=== PATIENT | male | born 1965 | race Caucasian/White ===

== ENCOUNTER 2018-02-07 02:48 | Observation (INO) | payer SELFPAY ==
[2018-02-07] MEDS ORDERED: Sodium Chloride 0.9% 2.5 ML Syringe FLUSH PRN ×2 (02:59)
[2018-02-07] MEDS ORDERED: Alum Hydrox/Mag Hydrox/Simeth 15 ML, Metoclopramide 5 MG, Lidocaine 2% 5 ML PO ONE ×3 (02:59)
[2018-02-07] MEDS ORDERED: Sodium Chloride 0.9% 1,000 ML IV ONE (02:59)
[2018-02-07] MEDS ORDERED: Famotidine 20 MG/2 ML SDV IVPUSH ONE (02:59)
[2018-02-07] MEDS ORDERED: Sodium Chloride 0.9% 10 ML Syringe FLUSH PRN (02:59)
--- NOTE | 2018-02-07 03:01 | EDM.PDOC ---
ED HPI GENERAL MEDICAL PROBLEM - General Chief Complaint: Chest Pain Stated Complaint: CHEST PAINS Time Seen by Provider: 02/07/18 03:01 Source of Information: Reports: Patient History Limitations: Reports: No Limitations - History of Present Illness INITIAL COMMENTS - FREE TEXT/NARRATIVE: HISTORY AND PHYSICAL: History of present illness: 52-year-old male presenting to the emergency department by ambulance with chief complaint of chest pain/tightness/burning and dizziness 2 hours intermittent with past medical history of hypertension. Patient states that he was working out in the sun all day and does admit to drinking 3 cups of coffee and very little water. Around 8:00 pm he began to feel chest tightness as well as burning sensation in the left substernal area without radiation to the left arm or jaw. States that at that time laying down made the pain worse. Pain was intermittent and lasting for 1-2 minutes at a time. The pain seemed to alleviate on its own but happen multiple times. At approximately midnight he began to have worsening chest tightness and burning. He had associated diaphoresis as well as shortness of breath and felt dizzy. He did not pass out. He proceeded to start driving himself into the hospital but secondary to increasing pain dizziness and feeling like he was going to pass out called EMS who met him and continued transport here. He states that he has had nausea with dry heaves. He does have a history of heartburn. EMS gave him oxygen as well as 324 mg chewable aspirin. States that he felt somewhat beter after this. Patient is originally from [place] and sees a Dr. Mcmahan there. He has been in [place] for 1 week. Patient states that he quit smoking in 1995 but was not an every day smoker. He also does not drink alcohol since 1995. On arrival to the ED patient was asymptomatic. Patient has a history of hypertension but no other cardiopulmonary disease. Patient denies any allergies. Review of systems: As per history of present illness and below otherwise all systems reviewed and negative. Past medical history: As per history of present illness and as reviewed below otherwise noncontributory. Surgical history: As per history of present illness and as reviewed below otherwise noncontributory. Social history: No reported history of drug or alcohol abuse. Family history: As per history of present illness and as reviewed below otherwise noncontributory. Physical exam: HEENT: Atraumatic, normocephalic, pupils reactive, negative for conjunctival pallor or scleral icterus, mucous membranes moist, throat clear, neck supple, nontender, trachea midline. Lungs: Clear to auscultation, breath sounds equal bilaterally, chest nontender. Heart: S1S2, regular, negative for clicks, rubs, or JVD. Abdomen: Soft, nondistended, nontender. Negative for masses or hepatosplenomegaly. Negative for costovertebral tenderness. Pelvis: Stable nontender. Genitourinary: Deferred. Rectal: Deferred. Extremities: Atraumatic, negative for cords or calf pain. Neurovascular unremarkable. Neuro: Awake, alert, oriented. Cranial nerves II through XII unremarkable. Cerebellum unremarkable. Motor and sensory unremarkable throughout. Exam nonfocal. Diagnostics: CBC, CMP, troponin, INR, chest x-ray, EKG Therapeutics: Famotidine 20 mg IV 1, 1 L normal saline Impression: Atypical chest pain GERD Dehydration Plan: Vital signs remained stable and normal during his time in the ER. He had no further episodes of chest pain. He was given famotidine as well as 1 L normal saline. Initial EKG showed no significant ST changes suggestive of acute ischemic event. Initial troponin was negative. CBC, CMP, INR, chest x-ray were all unremarkable. Secondary to patient's age as well as history of hypertension hospitalist Dr. Arnold was called for observation for atypical chest pain. He accepted patient for admission. Patient will be admitted to obs telemetry for atypical chest pain. 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: Aspirin, IV/IO - Related Data Allergies Allergy/AdvReac Type Severity Reaction Status Date / Time No Known Allergies Allergy Verified 02/07/18 04:03 Home Meds: Home Meds Lisinopril 20 mg PO DAILY 02/07/18 [History] Past Medical History Cardiovascular History: Reports: Hypertension Social & Family History - Family History Family Medical History: Noncontributory - Tobacco Use Smoking Status *Q: Former Smoker Used Tobacco, but Quit: Yes Month/Year Tobacco Last Used: 96 - Caffeine Use Caffeine Use: Reports: Coffee ED ROS GENERAL - Review of Systems Review Of Systems: ROS reveals no pertinent complaints other than HPI. ED EXAM, GENERAL - Physical Exam Exam: See Below Course - Vital Signs Last Recorded V/S: Last Vital Signs Temp 98.1 F 02/07/18 02:57 Pulse 76 02/07/18 02:57 Resp 18 06/04/18 02:57 BP 134/83 02/07/18 02:57 Pulse Ox 99 02/07/18 02:57 - Orders/Labs/Meds Orders: Active Orders 24 hr Category Date Time Status Cardiac Monitoring [RC] . DIRECTED Care 02/07/18 02:59 Active EKG Documentation Completion [RC] STAT Care 02/07/18 02:59 Active Oxygen Therapy [RC] ASDIRECTED Care 02/07/18 02:59 Active Pulse Oximetry [RC] ASDIRECTED Care 02/07/18 02:59 Active Chest 1V Frontal [CR] Stat Exams 02/07/18 02:59 Taken UA W/MICROSCOPIC [URIN] Stat Lab 02/07/18 03:00 Ordered Sodium Chloride 0.9% [Saline Flush] Med 02/07/18 02:59 Active 10 ml FLUSH ASDIRECTED PRN Sodium Chloride 0.9% [Saline Flush] Med 02/07/18 02:59 Active 2.5 ml FLUSH ASDIRECTED PRN Sodium Chloride 0.9% [Saline Flush] Med 02/07/18 02:59 Active 2.5 ml FLUSH ASDIRECTED PRN Saline Lock Insert [OM.PC] Stat Oth 02/07/18 02:59 Ordered Medication Orders Sodium Chloride (Saline Flush) 2.5 ml FLUSH ASDIRECTED PRN PRN Reason: Keep Vein Open Last Admin: 02/07/18 03:07 Dose: 2.5 ml Sodium Chloride (Saline Flush) 10 ml FLUSH ASDIRECTED PRN PRN Reason: Keep Vein Open Last Admin: 02/07/18 03:06 Dose: 10 ml Sodium Chloride (Saline Flush) 2.5 ml FLUSH ASDIRECTED PRN PRN Reason: Keep Vein Open Last Admin: 02/07/18 03:07 Dose: 2.5 ml Labs: Laboratory Tests 02/07/18 02/07/18 02/07/18 Range/Units 03:00 03:00 03:00 WBC 9.32 (4.0-11.0) K/uL RBC 5.01 (4.50-5.90) M/uL Hgb 15.5 (13.0-17.0) g/dL Hct 43.0 (38.0-50.0) % MCV 85.8 (80.0-98.0) fL MCH 30.9 (27.0-32.0) pg MCHC 36.0 (31.0-37.0) g/dL RDW Std Deviation 39.5 (28.0-62.0) fl RDW Coeff of Opal 13 (11.0-15.0) % Plt Count 207 (150-400) K/uL MPV 10.00 (7.40-12.00) fL Neut % (Auto) 82.5 H (48.0-80.0) % Lymph % (Auto) 14.4 L (16.0-40.0) % [place] % (Auto) 2.5 (0.0-15.0) % Eos % (Auto) 0.4 (0.0-7.0) % Baso % (Auto) 0.2 (0.0-1.5) % Neut # (Auto) 7.7 H (1.4-5.7) K/uL Lymph # (Auto) 1.3 (0.6-2.4) K/uL [place] # (Auto) 0.2 (0.0-0.8) K/uL Eos # (Auto) 0.0 (0.0-0.7) K/uL Baso # (Auto) 0.0 (0.0-0.1) K/uL Nucleated RBC % 0.0 /100WBC Nucleated RBCs # 0 K/uL INR 1.08 Sodium 137 (136-148) mmol/L Potassium 3.0 L (3.5-5.1) mmol/L Chloride 100 (98-107) mmol/L Carbon Dioxide 26.9 (21.0-32.0) mmol/L BUN 20 H (7.0-18.0) mg/dL Creatinine 1.2 (0.8-1.3) mg/dL Est Cr Clr Drug Dosing TNP Estimated GFR (MDRD) > 60.0 ml/min Glucose 115 H (74-106) mg/dL Calcium 8.6 (8.5-10.1) mg/dL Total Bilirubin 0.5 (0.2-1.0) mg/dL AST 18 (15-37) IU/L ALT 27 (14-63) IU/L Alkaline Phosphatase 48 (46-116) U/L Troponin I < 0.050 (0.000-0.056) ng/mL Total Protein 7.0 (6.4-8.2) g/dL Albumin 4.3 (3.4-5.0) g/dL Globulin 2.7 (2.0-3.5) g/dL Albumin/Globulin Ratio 1.6 (1.3-2.8) Urine Color Urine Appearance Urine pH (5.0-8.0) Ur Specific [place] (1.001-1.035) Urine Protein (NEGATIVE) mg/dL Urine Glucose (UA) (NEGATIVE) mg/dL Urine Ketones (NEGATIVE) mg/dL Urine Occult Blood (NEGATIVE) Urine Nitrite (NEGATIVE) Urine Bilirubin (NEGATIVE) Urine Urobilinogen (<2.0) EU/dL Ur Leukocyte Esterase (NEGATIVE) Urine RBC (0-2/HPF) Urine WBC (0-5/HPF) Ur Epithelial Cells (NONE-FEW) Urine Bacteria (NEGATIVE) 02/07/18 Range/Units 03:00 WBC (4.0-11.0) K/uL RBC (4.50-5.90) M/uL Hgb (13.0-17.0) g/dL Hct (38.0-50.0) % MCV (80.0-98.0) fL MCH (27.0-32.0) pg MCHC (31.0-37.0) g/dL RDW Std Deviation (28.0-62.0) fl RDW Coeff of [place]al (11.0-15.0) % Plt Count (150-400) K/uL MPV (7.40-12.00) fL Neut % (Auto) (48.0-80.0) % Lymph % (Auto) (16.0-40.0) % [place] % (Auto) (0.0-15.0) % Eos % (Auto) (0.0-7.0) % Baso % (Auto) (0.0-1.5) % Neut # (Auto) (1.4-5.7) K/uL Lymph # (Auto) (0.6-2.4) K/uL [place] # (Auto) (0.0-0.8) K/uL Eos # (Auto) (0.0-0.7) K/uL Baso # (Auto) (0.0-0.1) K/uL Nucleated RBC % /100WBC Nucleated RBCs # K/uL INR Sodium (136-148) mmol/L Potassium (3.5-5.1) mmol/L Chloride (98-107) mmol/L Carbon Dioxide (21.0-32.0) mmol/L BUN (7.0-18.0) mg/dL Creatinine (0.8-1.3) mg/dL Est Cr Clr Drug Dosing Estimated GFR (MDRD) ml/min Glucose (74-106) mg/dL Calcium (8.5-10.1) mg/dL Total Bilirubin (0.2-1.0) mg/dL AST (15-37) IU/L ALT (14-63) IU/L Alkaline Phosphatase (46-116) U/L Troponin I (0.000-0.056) ng/mL Total Protein (6.4-8.2) g/dL Albumin (3.4-5.0) g/dL Globulin (2.0-3.5) g/dL Albumin/Globulin Ratio (1.3-2.8) Urine Color YELLOW Urine Appearance CLEAR Urine pH 5.5 (5.0-8.0) Ur Specific [place] 1.010 (1.001-1.035) Urine Protein NEGATIVE (NEGATIVE) mg/dL Urine Glucose (UA) NEGATIVE (NEGATIVE) mg/dL Urine Ketones NEGATIVE (NEGATIVE) mg/dL Urine Occult Blood TRACE-LYSED (NEGATIVE) Urine Nitrite NEGATIVE (NEGATIVE) Urine Bilirubin NEGATIVE (NEGATIVE) Urine Urobilinogen 0.2 (<2.0) EU/dL Ur Leukocyte Esterase NEGATIVE (NEGATIVE) Urine RBC 0-2 (0-2/HPF) Urine WBC 0-1 (0-5/HPF) Ur Epithelial Cells RARE (NONE-FEW) Urine Bacteria FEW (NEGATIVE) Meds: Medications Generic Name Dose Route Start Last Admin Trade Name Freq PRN Reason Stop Dose Admin Sodium Chloride 2.5 ml 02/07/18 02:59 02/07/18 03:07 Saline Flush FLUSH 2.5 ml ASDIRECTED PRN Administration Keep Vein Open Sodium Chloride 10 ml 02/07/18 02:59 02/07/18 03:06 Saline Flush FLUSH 10 ml ASDIRECTED PRN Administration Keep Vein Open Sodium Chloride 2.5 ml 02/07/18 02:59 02/07/18 03:07 Saline Flush FLUSH 2.5 ml ASDIRECTED PRN Administration Keep Vein Open Discontinued Medications Generic Name Dose Route Start Last Admin Trade Name Gaby PRN Reason Stop Dose Admin Al Hydroxide/Mg Hydroxide 15 0 ml 02/07/18 02:59 02/07/18 03:07 ml/ Metoclopramide HCl 5 mg/ PO 02/07/18 03:00 25 each Lidocaine HCl 5 ml ONETIME ONE Administration Famotidine 20 mg 02/07/18 02:59 02/07/18 03:07 Pepcid IVPUSH 02/07/18 03:00 20 mg ONETIME ONE Administration Sodium Chloride 1,000 mls @ 999 mls/hr 02/07/18 02:59 02/07/18 03:07 Normal Saline IV 02/07/18 03:59 999 mls/hr .Bolus ONE Administration Departure - Departure Time of Disposition: 04:21 Disposition: Admitted As Inpatient 67 Condition: Good Clinical Impression: Atypical chest pain - Discharge Information Forms: ED Department Discharge - My Orders Last 24 Hours: My Active Orders 02/07/18 02:59 Cardiac Monitoring [RC] . DIRECTED EKG Documentation Completion [RC] STAT Oxygen Therapy [RC] ASDIRECTED Pulse Oximetry [RC] ASDIRECTED Chest 1V Frontal [CR] Stat Sodium Chloride 0.9% [Saline Flush] 10 ml FLUSH ASDIRECTED PRN Sodium Chloride 0.9% [Saline Flush] 2.5 ml FLUSH ASDIRECTED PRN Sodium Chloride 0.9% [Saline Flush] 2.5 ml FLUSH ASDIRECTED PRN Saline Lock Insert [OM.PC] Stat 02/07/18 03:00 UA W/MICROSCOPIC [URIN] Stat - Assessment/Plan Last 24 Hours: My Active Orders 02/07/18 02:59 Cardiac Monitoring [RC] . DIRECTED EKG Documentation Completion [RC] STAT Oxygen Therapy [RC] ASDIRECTED Pulse Oximetry [RC] ASDIRECTED Chest 1V Frontal [CR] Stat Sodium Chloride 0.9% [Saline Flush] 10 ml FLUSH ASDIRECTED PRN Sodium Chloride 0.9% [Saline Flush] 2.5 ml FLUSH ASDIRECTED PRN Sodium Chloride 0.9% [Saline Flush] 2.5 ml FLUSH ASDIRECTED PRN Saline Lock Insert [OM.PC] Stat 02/07/18 03:00 UA W/MICROSCOPIC [URIN] Stat
[2018-02-07 03:30] LABS: CHLORIDE,CL 100 mmol/L (98-107); SODIUM,NA 137 mmol/L (136-148)
[2018-02-07] MEDS ORDERED: Potassium Chloride 20 MEQ Packet PO ONE (05:39)
[2018-02-07] MEDS ORDERED: Acetaminophen 325 MG Tab PO PRN (05:40)
[2018-02-07] MEDS ORDERED: Potassium Chloride 20 MEQ Tab.ER PO ONE (05:47)
--- NOTE | 2018-02-07 08:04 | PCM.HP ---
H&P History of Present Illness - General Date of Service: 02/07/18 Admit Problem/Dx: Admission Diagnosis/Problem Admission Diagnosis/Problem Atypical chest pain Source of Information: Patient History Limitations: Reports: No Limitations - History of Present Illness Initial Comments - Free Text/Narative: 52M with a past mhx of HTN, acid reflux, presented to the ER last night with the CC of chest pain that began earlier that evening. Patient states that he was out fishing yesterday, had little to nothing to drink aside from coffee in the morning and began to feel nauseous. Shortly thereafter, he started to feel left sided, non-radiating chest pain, 7/10, nonpleuritic. This lasted about 5 minutes. This happened a few times. He tried to initially drive to the hospital himself but felt he was unable so called an ambulance. EMS gave 325mg aspirin, o2. He tells me that hes had a similar episode in the past in [place] where has had "heart scan" done this past year that came back completely normal. He denies any fever, chills, nausea, vomiting, orthopnea, pain elsewhere. Headache Pain Score (Numeric/FACES): 4 - Related Data Allergies/Adverse Reactions: Allergies Allergy/AdvReac Type Severity Reaction Status Date / Time No Known Allergies Allergy Verified 02/07/18 04:03 Home Medications: Home Meds Lisinopril 20 mg PO DAILY 02/07/18 [History] Past Medical History Cardiovascular History: Reports: Hypertension - Past Surgical History Cardiovascular Surgical History: Reports: None Social & Family History - Family History Family Medical History: Noncontributory - Tobacco Use Smoking Status *Q: Former Smoker Used Tobacco, but Quit: Yes Month/Year Tobacco Last Used: 96 Second Hand Smoke Exposure: No - Caffeine Use Caffeine Use: Reports: Coffee - Recreational Drug Use Recreational Drug Use: No H&P Review of Systems - Review of Systems: Review Of Systems: See Below General: Reports: Other (see HPI) HEENT: Reports: No Symptoms Pulmonary: Reports: No Symptoms Cardiovascular: Reports: Chest Pain, Blood Pressure Problem (hx of HTN). Denies : Palpitations, Orthopnea, Edema, Lightheadedness, Syncope Gastrointestinal: Reports: No Symptoms Genitourinary: Reports: No Symptoms Musculoskeletal: Reports: No Symptoms Skin: Reports: No Symptoms Psychiatric: Reports: No Symptoms Neurological: Reports: No Symptoms Hematologic/Lymphatic: Reports: No Symptoms Immunologic: Reports: No Symptoms Exam - Exam Exam: See Below - Vital Signs Vital Signs: Last Vital Signs Temp 36.7 C 02/07/18 02:57 Pulse 78 02/07/18 04:16 Resp 18 02/07/18 04:16 BP 119/73 02/07/18 04:16 Pulse Ox 99 02/07/18 04:16 Weight: 70.261 kg - Exam General: Alert, Oriented, Cooperative HEENT: Conjunctiva Clear, EACs Clear, EOMI, Hearing Intact, Mucosa Moist & [place] , Nares Patent, Normal Nasal Septum, Posterior Pharynx Clear, Pupils Equal, Pupils Reactive, TMs Clear Neck: Supple Lungs: Clear to Auscultation, Normal Respiratory Effort Cardiovascular: Regular Rate, Regular Rhythm GI/Abdominal Exam: Normal Bowel Sounds, Soft, Non-Tender, No Organomegaly, No Distention, No Abnormal Bruit, No Mass, Pelvis Stable (Male) Exam: No Hernia, Normal Inspection, Normal Prostate, Circumcised Rectal (Males) Exam: Normal Exam, Normal Rectal Tone, Prostate Normal Back Exam: Normal Inspection, Full Range of Motion, NT Extremities: Normal Inspection, Normal Range of Motion, Non-Tender, No Pedal Edema, Normal Capillary Refill Skin: Warm, Dry, Intact Neurological: Cranial Nerves Intact, Reflexes Equal Bilateral Neuro Extensive - Mental Status: Alert, Oriented x3, Normal Mood/Affect, Normal Cognition Neuro Extensive - Motor, Sensory, Reflexes: CN II-XII Intact, Normal Gait, Normal Reflexes Psychiatric: Alert, Normal Affect, Normal Mood - Patient Data Lab Results Last 24 hrs: Laboratory Results - last 24 hr 02/07/18 02/07/18 02/07/18 Range/Units 03:00 03:00 03:00 WBC 9.32 (4.0-11.0) K/uL RBC 5.01 (4.50-5.90) M/uL Hgb 15.5 (13.0-17.0) g/dL Hct 43.0 (38.0-50.0) % MCV 85.8 (80.0-98.0) fL MCH 30.9 (27.0-32.0) pg MCHC 36.0 (31.0-37.0) g/dL RDW Std Deviation 39.5 (28.0-62.0) fl RDW Coeff of Opal 13 (11.0-15.0) % Plt Count 207 (150-400) K/uL MPV 10.00 (7.40-12.00) fL Neut % (Auto) 82.5 H (48.0-80.0) % Lymph % (Auto) 14.4 L (16.0-40.0) % [place] % (Auto) 2.5 (0.0-15.0) % Eos % (Auto) 0.4 (0.0-7.0) % Baso % (Auto) 0.2 (0.0-1.5) % Neut # (Auto) 7.7 H (1.4-5.7) K/uL Lymph # (Auto) 1.3 (0.6-2.4) K/uL [place] # (Auto) 0.2 (0.0-0.8) K/uL Eos # (Auto) 0.0 (0.0-0.7) K/uL Baso # (Auto) 0.0 (0.0-0.1) K/uL Nucleated RBC % 0.0 /100WBC Nucleated RBCs # 0 K/uL INR 1.08 Sodium 137 (136-148) mmol/L Potassium 3.0 L (3.5-5.1) mmol/L Chloride 100 (98-107) mmol/L Carbon Dioxide 26.9 (21.0-32.0) mmol/L BUN 20 H (7.0-18.0) mg/dL Creatinine 1.2 (0.8-1.3) mg/dL Est Cr Clr Drug Dosing TNP Estimated GFR (MDRD) > 60.0 ml/min Glucose 115 H (74-106) mg/dL Calcium 8.6 (8.5-10.1) mg/dL Total Bilirubin 0.5 (0.2-1.0) mg/dL AST 18 (15-37) IU/L ALT 27 (14-63) IU/L Alkaline Phosphatase 48 (46-116) U/L Troponin I < 0.050 (0.000-0.056) ng/mL Total Protein 7.0 (6.4-8.2) g/dL Albumin 4.3 (3.4-5.0) g/dL Globulin 2.7 (2.0-3.5) g/dL Albumin/Globulin Ratio 1.6 (1.3-2.8) Urine Color Urine Appearance Urine pH (5.0-8.0) Ur Specific [place] (1.001-1.035) Urine Protein (NEGATIVE) mg/dL Urine Glucose (UA) (NEGATIVE) mg/dL Urine Ketones (NEGATIVE) mg/dL Urine Occult Blood (NEGATIVE) Urine Nitrite (NEGATIVE) Urine Bilirubin (NEGATIVE) Urine Urobilinogen (<2.0) EU/dL Ur Leukocyte Esterase (NEGATIVE) Urine RBC (0-2/HPF) Urine WBC (0-5/HPF) Ur Epithelial Cells (NONE-FEW) Urine Bacteria (NEGATIVE) 02/07/18 Range/Units 03:00 WBC (4.0-11.0) K/uL RBC (4.50-5.90) M/uL Hgb (13.0-17.0) g/dL Hct (38.0-50.0) % MCV (80.0-98.0) fL MCH (27.0-32.0) pg MCHC (31.0-37.0) g/dL RDW Std Deviation (28.0-62.0) fl RDW Coeff of Opal (11.0-15.0) % Plt Count (150-400) K/uL MPV (7.40-12.00) fL Neut % (Auto) (48.0-80.0) % Lymph % (Auto) (16.0-40.0) % [place] % (Auto) (0.0-15.0) % Eos % (Auto) (0.0-7.0) % Baso % (Auto) (0.0-1.5) % Neut # (Auto) (1.4-5.7) K/uL Lymph # (Auto) (0.6-2.4) K/uL [place] # (Auto) (0.0-0.8) K/uL Eos # (Auto) (0.0-0.7) K/uL Baso # (Auto) (0.0-0.1) K/uL Nucleated RBC % /100WBC Nucleated RBCs # K/uL INR Sodium (136-148) mmol/L Potassium (3.5-5.1) mmol/L Chloride (98-107) mmol/L Carbon Dioxide (21.0-32.0) mmol/L BUN (7.0-18.0) mg/dL Creatinine (0.8-1.3) mg/dL Est Cr Clr Drug Dosing Estimated GFR (MDRD) ml/min Glucose (74-106) mg/dL Calcium (8.5-10.1) mg/dL Total Bilirubin (0.2-1.0) mg/dL AST (15-37) IU/L ALT (14-63) IU/L Alkaline Phosphatase (46-116) U/L Troponin I (0.000-0.056) ng/mL Total Protein (6.4-8.2) g/dL Albumin (3.4-5.0) g/dL Globulin (2.0-3.5) g/dL Albumin/Globulin Ratio (1.3-2.8) Urine Color YELLOW Urine Appearance CLEAR Urine pH 5.5 (5.0-8.0) Ur Specific [place] 1.010 (1.001-1.035) Urine Protein NEGATIVE (NEGATIVE) mg/dL Urine Glucose (UA) NEGATIVE (NEGATIVE) mg/dL Urine Ketones NEGATIVE (NEGATIVE) mg/dL Urine Occult Blood TRACE-LYSED (NEGATIVE) Urine Nitrite NEGATIVE (NEGATIVE) Urine Bilirubin NEGATIVE (NEGATIVE) Urine Urobilinogen 0.2 (<2.0) EU/dL Ur Leukocyte Esterase NEGATIVE (NEGATIVE) Urine RBC 0-2 (0-2/HPF) Urine WBC 0-1 (0-5/HPF) Ur Epithelial Cells RARE (NONE-FEW) Urine Bacteria FEW (NEGATIVE) Result Diagrams: 02/07/18 03:00 02/07/18 03:00 Problem List Initiated/Reviewed/Updated: Yes Orders Last 24hrs: Active Orders 24 hr Category Date Time Status Admission Status [Patient Status] [ADT] Routine ADT 02/07/18 04:51 Active Cardiac Monitoring [RC] . DIRECTED Care 02/07/18 04:26 Active Cardiac Monitoring [RC] . DIRECTED Care 02/07/18 04:26 Active EKG Documentation Completion [RC] STAT Care 02/07/18 02:59 Active Oxygen Therapy [RC] ASDIRECTED Care 02/07/18 02:59 Active Pulse Oximetry [RC] ASDIRECTED Care 02/07/18 02:59 Active Telemetry Monitoring [Cardiac Monitoring] [RC] . Care 02/07/18 04:26 Active DIRECTED Regular Diet [DIET] Diet 02/07/18 Breakfast Active Chest 1V Frontal [CR] Stat Exams 02/07/18 02:59 Taken TROPONIN I [CHEM] Routine Lab 02/07/18 09:00 Ordered TROPONIN I [CHEM] Routine Lab 02/07/18 15:00 Ordered UA W/MICROSCOPIC [URIN] Stat Lab 02/07/18 03:00 Ordered Acetaminophen [Tylenol] Med 02/07/18 05:40 Active 650 mg PO Q6H PRN Sodium Chloride 0.9% [Saline Flush] Med 02/07/18 02:59 Active 10 ml FLUSH ASDIRECTED PRN Sodium Chloride 0.9% [Saline Flush] Med 02/07/18 02:59 Active 2.5 ml FLUSH ASDIRECTED PRN Sodium Chloride 0.9% [Saline Flush] Med 02/07/18 02:59 Active 2.5 ml FLUSH ASDIRECTED PRN Saline Lock Insert [OM.PC] Stat Oth 02/07/18 02:59 Ordered Medication Orders Acetaminophen (Tylenol) 650 mg PO Q6H PRN PRN Reason: Pain Sodium Chloride (Saline Flush) 2.5 ml FLUSH ASDIRECTED PRN PRN Reason: Keep Vein Open Last Admin: 02/07/18 03:07 Dose: 2.5 ml Sodium Chloride (Saline Flush) 10 ml FLUSH ASDIRECTED PRN PRN Reason: Keep Vein Open Last Admin: 02/07/18 03:06 Dose: 10 ml Sodium Chloride (Saline Flush) 2.5 ml FLUSH ASDIRECTED PRN PRN Reason: Keep Vein Open Last Admin: 02/07/18 03:07 Dose: 2.5 ml Assessment/Plan Comment:: A: #1. ACS Rule out #2. Hypokalemia #3. History of HTN P: #1. Admit to the floor for observation. SCD's for DVT prophylaxis #2. Vital signs per floor routine. Cardiac telemetry #3. Troponin q6h x2. First set negative obtained in ER. EKG in ER was NSR. No events on telemetry thus far at the time of dictation. #4. 40meq K+ x1. Will recheck potassium prior to discharge. #5. Anticipate discharge if 3/3 troponin negative.
--- NOTE | 2018-02-07 10:03 | PCM.DCSUM1 ---
Discharge Summary - Hospital Course Free Text/Narrative:: Admission Date: 02/07/2018 Discharge Date: 02/07/2018 Admission diagnosis: #1. Chest pain #2. ACS Rule out #3. Hypokalemia #4. History of HTN, gastric reflux Discharge diagnosis: #1. Chest pain resolved #2. ACS - Troponin 2/3 negative #3. Hypokalemia s/p oral potassium #4. History of HTN, gastric reflux Hospital course: 52M that was admitted for observation after experiencing chest pain the night before presentation to the ER that was intermittent, 7/10, left sided and non- radiating at rest. EKG, CXR, initial labs in the ER were all unremarkable. He was admitted for observation on telemetry and serial troponins. In the morning when I assessed the patient, he was chest pain free. He does have a history of acid reflux and he was adamant that this was the cause of his discomfort. He did not want to wait for the third troponin and wanted to go home. Potassium on presentation was 3.0, he was given oral potassium. He didn't want to stay for a recheck on potassium level. He was advised to f/u with his PCP in [place] as soon as he gets back, and to get a recheck on his potassium. He was also advised to return to the ER if he does experience chest pain, palpitations, SOB , syncope. Discharge medications: #1. Protonix 40mg PO daily x30 days - Discharge Data Discharge Date: 02/07/18 Discharge Disposition: Home, Self-Care 01 Condition: Fair - Discharge Plan Home Medications: Home Meds Lisinopril 20 mg PO DAILY 02/07/18 [History] Forms: ED Department Discharge Referrals: PCP,None [Primary Care Provider] - - Discharge Summary/Plan Comment Discharge Summary/Plan Comment: Admission Date: 02/07/2018 Discharge Date: 02/07/2018 Admission diagnosis: #1. Chest pain #2. ACS Rule out #3. Hypokalemia #4. History of HTN, gastric reflux Discharge diagnosis: #1. Chest pain resolved #2. ACS - Troponin 2/3 negative #3. Hypokalemia s/p oral potassium #4. History of HTN, gastric reflux Hospital course: 52M that was admitted for observation after experiencing chest pain the night before presentation to the ER that was intermittent, 7/10, left sided and non- radiating at rest. EKG, CXR, initial labs in the ER were all unremarkable. He was admitted for observation on telemetry and serial troponins. In the morning when I assessed the patient, he was chest pain free. He does have a history of acid reflux and he was adamant that this was the cause of his discomfort. He did not want to wait for the third troponin and wanted to go home. Potassium on presentation was 3.0, he was given oral potassium. He didn't want to stay for a recheck on potassium level. He was advised to f/u with his PCP in [place] as soon as he gets back, and to get a recheck on his potassium. He was also advised to return to the ER if he does experience chest pain, palpitations, SOB , syncope. Discharge medications: #1. Protonix 40mg PO daily x30 days - Patient Data Vitals - Most Recent: Last Vital Signs Temp 37.0 C 02/07/18 07:15 Pulse 70 02/07/18 07:15 Resp 14 02/07/18 07:15 BP 113/60 02/07/18 07:15 Pulse Ox 96 02/07/18 07:15 Weight - Most Recent: 70.261 kg Lab Results - Last 24 hrs: Laboratory Results - last 24 hr 02/07/18 02/07/18 02/07/18 Range/Units 03:00 03:00 03:00 WBC 9.32 (4.0-11.0) K/uL RBC 5.01 (4.50-5.90) M/uL Hgb 15.5 (13.0-17.0) g/dL Hct 43.0 (38.0-50.0) % MCV 85.8 (80.0-98.0) fL MCH 30.9 (27.0-32.0) pg MCHC 36.0 (31.0-37.0) g/dL RDW Std Deviation 39.5 (28.0-62.0) fl RDW Coeff of Opal 13 (11.0-15.0) % Plt Count 207 (150-400) K/uL MPV 10.00 (7.40-12.00) fL Neut % (Auto) 82.5 H (48.0-80.0) % Lymph % (Auto) 14.4 L (16.0-40.0) % [place] % (Auto) 2.5 (0.0-15.0) % Eos % (Auto) 0.4 (0.0-7.0) % Baso % (Auto) 0.2 (0.0-1.5) % Neut # (Auto) 7.7 H (1.4-5.7) K/uL Lymph # (Auto) 1.3 (0.6-2.4) K/uL [place] # (Auto) 0.2 (0.0-0.8) K/uL Eos # (Auto) 0.0 (0.0-0.7) K/uL Baso # (Auto) 0.0 (0.0-0.1) K/uL Nucleated RBC % 0.0 /100WBC Nucleated RBCs # 0 K/uL INR 1.08 Sodium 137 (136-148) mmol/L Potassium 3.0 L (3.5-5.1) mmol/L Chloride 100 (98-107) mmol/L Carbon Dioxide 26.9 (21.0-32.0) mmol/L BUN 20 H (7.0-18.0) mg/dL Creatinine 1.2 (0.8-1.3) mg/dL Est Cr Clr Drug Dosing TNP Estimated GFR (MDRD) > 60.0 ml/min Glucose 115 H (74-106) mg/dL Calcium 8.6 (8.5-10.1) mg/dL Total Bilirubin 0.5 (0.2-1.0) mg/dL AST 18 (15-37) IU/L ALT 27 (14-63) IU/L Alkaline Phosphatase 48 (46-116) U/L Troponin I < 0.050 (0.000-0.056) ng/mL Total Protein 7.0 (6.4-8.2) g/dL Albumin 4.3 (3.4-5.0) g/dL Globulin 2.7 (2.0-3.5) g/dL Albumin/Globulin Ratio 1.6 (1.3-2.8) Urine Color Urine Appearance Urine pH (5.0-8.0) Ur Specific [place] (1.001-1.035) Urine Protein (NEGATIVE) mg/dL Urine Glucose (UA) (NEGATIVE) mg/dL Urine Ketones (NEGATIVE) mg/dL Urine Occult Blood (NEGATIVE) Urine Nitrite (NEGATIVE) Urine Bilirubin (NEGATIVE) Urine Urobilinogen (<2.0) EU/dL Ur Leukocyte Esterase (NEGATIVE) Urine RBC (0-2/HPF) Urine WBC (0-5/HPF) Ur Epithelial Cells (NONE-FEW) Urine Bacteria (NEGATIVE) 02/07/18 02/07/18 Range/Units 03:00 08:58 WBC (4.0-11.0) K/uL RBC (4.50-5.90) M/uL Hgb (13.0-17.0) g/dL Hct (38.0-50.0) % MCV (80.0-98.0) fL MCH (27.0-32.0) pg MCHC (31.0-37.0) g/dL RDW Std Deviation (28.0-62.0) fl RDW Coeff of Opal (11.0-15.0) % Plt Count (150-400) K/uL MPV (7.40-12.00) fL Neut % (Auto) (48.0-80.0) % Lymph % (Auto) (16.0-40.0) % [place] % (Auto) (0.0-15.0) % Eos % (Auto) (0.0-7.0) % Baso % (Auto) (0.0-1.5) % Neut # (Auto) (1.4-5.7) K/uL Lymph # (Auto) (0.6-2.4) K/uL [place] # (Auto) (0.0-0.8) K/uL Eos # (Auto) (0.0-0.7) K/uL Baso # (Auto) (0.0-0.1) K/uL Nucleated RBC % /100WBC Nucleated RBCs # K/uL INR Sodium (136-148) mmol/L Potassium (3.5-5.1) mmol/L Chloride (98-107) mmol/L Carbon Dioxide (21.0-32.0) mmol/L BUN (7.0-18.0) mg/dL Creatinine (0.8-1.3) mg/dL Est Cr Clr Drug Dosing Estimated GFR (MDRD) ml/min Glucose (74-106) mg/dL Calcium (8.5-10.1) mg/dL Total Bilirubin (0.2-1.0) mg/dL AST (15-37) IU/L ALT (14-63) IU/L Alkaline Phosphatase (46-116) U/L Troponin I < 0.050 (0.000-0.056) ng/mL Total Protein (6.4-8.2) g/dL Albumin (3.4-5.0) g/dL Globulin (2.0-3.5) g/dL Albumin/Globulin Ratio (1.3-2.8) Urine Color YELLOW Urine Appearance CLEAR Urine pH 5.5 (5.0-8.0) Ur Specific [place] 1.010 (1.001-1.035) Urine Protein NEGATIVE (NEGATIVE) mg/dL Urine Glucose (UA) NEGATIVE (NEGATIVE) mg/dL Urine Ketones NEGATIVE (NEGATIVE) mg/dL Urine Occult Blood TRACE-LYSED (NEGATIVE) Urine Nitrite NEGATIVE (NEGATIVE) Urine Bilirubin NEGATIVE (NEGATIVE) Urine Urobilinogen 0.2 (<2.0) EU/dL Ur Leukocyte Esterase NEGATIVE (NEGATIVE) Urine RBC 0-2 (0-2/HPF) Urine WBC 0-1 (0-5/HPF) Ur Epithelial Cells RARE (NONE-FEW) Urine Bacteria FEW (NEGATIVE) Med Orders - Current: Current Medications Acetaminophen (Tylenol) 650 mg PO Q6H PRN PRN Reason: Pain Last Admin: 02/07/18 09:11 Dose: 650 mg Sodium Chloride (Saline Flush) 2.5 ml FLUSH ASDIRECTED PRN PRN Reason: Keep Vein Open Last Admin: 02/07/18 03:07 Dose: 2.5 ml Sodium Chloride (Saline Flush) 10 ml FLUSH ASDIRECTED PRN PRN Reason: Keep Vein Open Last Admin: 02/07/18 03:06 Dose: 10 ml Sodium Chloride (Saline Flush) 2.5 ml FLUSH ASDIRECTED PRN PRN Reason: Keep Vein Open Last Admin: 02/07/18 03:07 Dose: 2.5 ml Discontinued Medications Al Hydroxide/Mg Hydroxide 15 ml/ Metoclopramide HCl 5 mg/Lidocaine HCl 5 ml 0 ml PO ONETIME ONE Stop: 02/07/18 03:00 Last Admin: 02/07/18 03:07 Dose: 25 each Famotidine (Pepcid) 20 mg IVPUSH ONETIME ONE Stop: 02/07/18 03:00 Last Admin: 02/07/18 03:07 Dose: 20 mg Sodium Chloride (Normal Saline) 1,000 mls @ 999 mls/hr IV .Bolus ONE Stop: 02/07/18 03:59 Last Admin: 02/07/18 03:07 Dose: 999 mls/hr Potassium Chloride (Klor-Con M20) 40 meq PO ONETIME ONE Stop: 02/07/18 05:48 Last Admin: 02/07/18 06:14 Dose: 40 meq
--- NOTE | 2018-02-07 15:38 | CR ---
EXAM DATE: 02/07/18 PATIENT'S AGE: 52 Patient: ARGELIA CARREON Facility: [place], [place] Site . Site : [id number] Study: XRay Chest [id number]/4/2018 3:12:20 AM Ordering Physician: Sanju Lyon Final Report: INDICATION: Chest pain, past smoker TECHNIQUE: Chest radiograph 1 view COMPARISON: None FINDINGS: Mediastinum: The heart silhouette is normal in size and morphology. The mediastinum is normal in appearance. Lungs: Both lungs are unremarkable in appearance. No sign of pleural effusion seen. No pneumothorax is identified. Bones and soft tissue: Unremarkable for age. IMPRESSION: 1. No acute cardiopulmonary disease is seen. Dictated by Mukesh Alcala MD @ 02/07/2018 3:15:06 AM Dictated by: Mukesh Alcala MD @ 02/07/2018 03:15:08 (Electronic Signature) Report Signed by Proxy. COLBY
== END 2018-02-07 11:15 | disposition home or self-care (01) ==
LOC: MW.ED 02:48 → UNDOADMOB 04:26 → MW.MS 04:26 → UNDOADMOB 04:40 → UNDODISOB 11:15
PROVIDERS: ADMIT Internal Medicine; ATTEND Internal Medicine
DX: R07.89 Other chest pain (principal); E87.6 Hypokalemia; I10 Essential (primary) hypertension; K21.9 Gastro-esophageal reflux disease without esophagitis; Z79.899 Other long term (current) drug therapy
CPT/HCPCS: 36415; 71045; 80053; 81001; 84484; 85025; 85610; 93005; 96361; 96374; 99285; A9270; J7040